=== PATIENT | female | born 1975 | race African-American/Black ===

== ENCOUNTER 2020-06-13 14:46 | Emergency (ER) | payer OTHER ==
[~2020-06-13] VITALS: Ht 172.7 cm; Wt 63.5 kg
[2020-06-13] MEDS ORDERED: MACRODANTIN100 M1 PO (19:27)
== END 2020-06-13 19:34 | disposition home or self-care (01) ==
LOC: ER 14:46
DX: N39.0 Urinary tract infection, site not specified (principal); R31.0 Gross hematuria

== ENCOUNTER 2020-10-19 09:22 | Emergency (ER) | payer OTHER ==
[~2020-10-19] VITALS: Ht 172.7 cm; Wt 65.8 kg
[~2020-10-19 09:22] MED LIST: MACRODANTIN100 M1 PO
[2020-10-19] MEDS ORDERED: DUI500 PO (09:58)
[2020-10-19] MEDS ORDERED: MUPIROCIN22 GM TOP (09:58)
== END 2020-10-19 10:04 | disposition home or self-care (01) ==
LOC: ER 09:22
DX: S80.861S Insect bite (nonvenomous), right lower leg, sequela (principal); W57.XXXS Bitten or stung by nonvenomous insect and other nonvenomous arthropods, sequela

== ENCOUNTER 2020-10-25 09:11 | Emergency (ER) | payer OTHER ==
[~2020-10-25] VITALS: Ht 172.7 cm; Wt 64.0 kg
[~2020-10-25 09:11] MED LIST changes: +DUI500 PO; +MUPIROCIN22 GM TOP
[2020-10-25] MEDS ORDERED: CLEOCIN HCL300 MG PO (10:58)
== END 2020-10-25 11:04 | disposition home or self-care (01) ==
LOC: ER 09:11
DX: L01.09 Other impetigo (principal)

== ENCOUNTER 2020-11-03 11:35 | Emergency (ER) | payer OTHER ==
[~2020-11-03] VITALS: Ht 170.2 cm; Wt 68.0 kg
[~2020-11-03 11:35] MED LIST changes: +CLEOCIN HCL300 MG PO
== END 2020-11-03 13:32 | disposition home or self-care (01) ==
LOC: ER 11:35
DX: L01.09 Other impetigo (principal)

== ENCOUNTER 2020-11-16 10:22 | Emergency (ER) | payer OTHER ==
[~2020-11-16] VITALS: Ht 172.7 cm; Wt 63.5 kg
[2020-11-16] MEDS ORDERED: BACTRIM DS TAB1 EACH PO (14:11)
== END 2020-11-16 14:36 | disposition home or self-care (01) ==
LOC: ER 10:22
DX: L01.09 Other impetigo (principal)

== ENCOUNTER 2021-01-20 13:50 | Emergency (ER) | payer OTHER ==
[~2021-01-20] VITALS: Ht 172.7 cm; Wt 59.0 kg
[~2021-01-20 13:50] MED LIST changes: +BACTRIM DS TAB1 EACH PO
[2021-01-20] MEDS ORDERED: KETO10TA2 PO (15:36)
== END 2021-01-20 15:55 ==
LOC: ER 13:50
DX: S71.121A Laceration with foreign body, right thigh, initial encounter (principal); S70.311A Abrasion, right thigh, initial encounter; X99.8XXA Assault by other sharp object, initial encounter; Y93.89 Activity, other specified; Y92.89 Other specified places as the place of occurrence of the external cause; Y99.8 Other external cause status

== ENCOUNTER 2021-08-20 11:31 | Emergency (ER) | payer OTHER ==
[~2021-08-20] VITALS: Ht 172.7 cm; Wt 63.5 kg
[~2021-08-20 11:31] MED LIST changes: +KETO10TA2 PO
[2021-08-20] MEDS ORDERED: OSEL75CA PO (14:23)
== END 2021-08-20 14:51 | disposition home or self-care (01) ==
LOC: ER 11:31
DX: U07.1 COVID-19 (principal); J10.1 Influenza due to other identified influenza virus with other respiratory manifestations; B34.9 Viral infection, unspecified; R53.81 Other malaise

== ENCOUNTER 2022-01-08 10:08 | Emergency (ER) | payer OTHER ==
[~2022-01-08] VITALS: Ht 172.7 cm; Wt 63.5 kg
[~2022-01-08 10:08] MED LIST changes: +OSEL75CA PO
== END 2022-01-08 14:49 | disposition home or self-care (01) ==
LOC: ER 10:08
DX: R00.2 Palpitations (principal); E06.3 Autoimmune thyroiditis